=== PATIENT | male | born 1930 | race Caucasian/White ===

== ENCOUNTER 2016-12-06 13:06 | Emergency (ER) | payer MEDICARE, OTHER ==
--- NOTE | 2016-12-06 13:30 | Emergency Department Record ---
History of Present Illness - General Chief Complaint: Hypotension Stated Complaint: LOW BLOOD PRESSURE,JUST NOT FELLING RIGHT Time Seen by Provider: 12/06/16 13:20 Source: Patient Mode of Arrival: Ambulatory Limitations: No limitations - History of Present Illness Initial Comments: The patient states he has been feeling intermittently mildly weak for 3 days. He did have some trouble breathing 2 days ago which felt similar to when he was in atrial fibrillation recently and had to be cardioverted at [facility]. He denies any CP, sweating, nausea or weakness. The patient took his BP at home and it was a little low so he decided to come to the ER. The patient had been on blood thinners in the past after his cardioversion but had them stopped prematurely due to bleeding complications. Complaint: Lightheadedness Onset/Timin -: Days(s) Timing: Intermittent Description: Lightheadedness - [place] Coma Scale Eye Response: (4) Open spontaneously Motor Response: (6) Obeys commands Verbal Response: (5) Oriented [place] Total: 15 - Related Data Home Medications Medication Instructions Recorded Confirmed Last Taken Aspirin [Aspirin EC] 81 mg PO DAILY 12/06/16 12/06/16 1 Day Ago ~12/05/16 Allergies Allergy/AdvReac Type Severity Reaction Status Date / Time No Known Drug Allergies Allergy Verified 12/06/16 13:17 Travel Screening - Travel/Exposure Within Last 30 Days Have you traveled within the last 30 days?: No - Travel/Exposure Within Last Year Have you traveled outside the [place] in the last year?: No - Additonal Travel Details Have you been exposed to anyone with a communicable illness?: No - Travel Symptoms Symptom Screening: None Review of Systems Constitutional: Denies: Chills, Fever Eyes: Denies: Eye discharge ENT: Denies: Congestion Respiratory: Denies: Cough, Dyspnea Past Medical History - SOCIAL HISTORY Smoking Status: Former smoker Alcohol Use: None Drug Use: None - RESPIRATORY Hx Respiratory Disorders: No - CARDIOVASCULAR Hx Cardio Disorders: Yes Hx Hypertension: Yes Hx Irregular Heartbeat: Yes Comment:: Stopped and started By Dr Silva last January - NEURO Hx Neuro Disorders: No - GI Hx GI Disorders: No - Hx Genitourinary Disorders: No - MUSCULOSKELETAL Hx Musculoskeletal Disorders: No - PSYCH Hx Psych Problems: No - HEMATOLOGY/ONCOLOGY Hx Hematology/Oncology Disorders: No Family Medical History Any Significant Family History?: Yes Physical Exam - General General Appearance: Alert, Oriented x3, Cooperative, No acute distress - Head Head exam: Atraumatic, Normocephalic, Normal inspection - Eye Eye exam: Normal appearance, PERRL - Neck Neck exam: Normal inspection, Full ROM. negative: Tenderness - Respiratory Respiratory exam: Normal lung sounds bilaterally. negative: Respiratory distress - Cardiovascular Cardiovascular Exam: Irregular rhythm. negative: Regular rate, Normal rhythm - GI/Abdominal GI/Abdominal exam: Soft, Normal bowel sounds. negative: Tenderness - Extremities Extremities exam: Normal inspection, Full ROM, Normal capillary refill. negative: Tenderness - Neurological Neurological exam: Alert, Normal gait. negative: Abnormal gait, Motor sensory deficit Course Vital Signs 12/06/16 13:10 Temperature 97.7 F Pulse Rate 74 Respiratory 16 Rate Blood Pressure 102/73 Pulse Ox 99 - Reevaluation(s) Reevaluation #1: The patient is doing very well at this time. I did discuss the lab results with him and the fact his cardiac enzymes did not indicate any recent cardiac event. His BP is slightly low probably due to the Afib and with that along with the new onset of the Afib I did recommend hospital admission to possibly cardiovert the patient. The patient is reluctant to be admitted to the hospital and only wants to see Dr. Norman this week in the office. I explained to him that I could possibly get him an appointment for this [facility]. The risks of leaving are that the patient could go home and have a stroke, RI, fall due to hypotension, become disabled and even . The patient understands and accepts the risks of leaving AM. He is to stop his Lisonopril until he sees Dr. Norman but continue the rest of his medicines. Due to the fact the patient had his blood thinners stopped prematurely in the past I was not able to make any recommendation as to restarting them. The patient understands he could have a higher risk of stroke but also accepts those risks. 12/06/16 14:52 12/06/16 16:06 Reevaluation #2: I did attempt to consult with the [facility] Attending [employer] Dr. Ryan but he was not able to give any opinion as to the need for admission or blood thinners. 12/06/16 16:05 Medical Decision Making - Data Complexity MDM Data: Labs Ordered and/or Reviewed, EKG Ordered and/or Reviewed - Lab Data Result diagrams: 12/06/16 13:40 12/06/16 13:50 - EKG Data -: EKG Interpreted by Me EKG: Unchanged From Previous (Afib at 90's.) Disposition Disposition: Discharge Clinical Impression: Atrial fibrillation Qualifiers: Atrial fibrillation type: paroxysmal Qualified Code(s): I48.0 - Paroxysmal atrial fibrillation Disposition: Against Medical Advice Condition: (1) Good Instructions: A-fib (Atrial Fibrillation) (ED) Additional Instructions: Please stop your Lisinopril until you see Dr. Norman this week hopefully. Continue the rest of your medicines. Please see Dr. Norman this week as directed. Return to the ER for any CP, SOB, ERICH, or sweating. Referrals: [facility] [Provider Group] LEONIDAS NORMAN [DOCTOR OF OSTEOPATH] - Forms: Patient Portal Access Time of Disposition: 14:57 Quality - Quality Measures Quality Measures: N/A - Blood Pressure Screening View Details: Yes Does Patient Have Any of the Following: No Blood Pressure Classification: Normal BP Reading Systolic Measurement: 102 Diastolic Measurement: 73 Screening for High Blood Pressure: < Normal BP, F/U Not Required > [G8783]
[2016-12-06 13:59] LABS: BASO % 0.2 % (0-6); EOS % 0.7 % (0-6); GRAN % 70.8 % (47-80); HEMATOCRIT 41.3 % (42.0-52.0); HEMOGLOBIN 13.4 gm/dl (14.0-18.0); LYMPH % 20.5 % (16-45); MEAN CELL VOLUME 100.2 fl (81-97); MEAN CORPUSCULAR HEMOGLOBIN 32.5 pg (27-33); MEAN CORPUSCULAR HGB CONC 32.4 g/dl (32-36); MEAN PLATELET VOLUME 11.9 fl (7.4-10.4); MONO % 7.8 % (0-9); PLATELET COUNT 157 K/uL (130-400); RED BLOOD COUNT 4.12 M/uL (4.40-5.70); WHITE BLOOD COUNT W/O DIFF 9.4 K/uL (4.2-12.2)
[2016-12-06 14:03] LABS: BLOOD UREA NITROGEN 24 mg/dL (9-20); CREATINE PHOSPHOKINASE 27 U/L (55-170); EST GLOMERULAR FILTRATION RATE > 60 ml/min; GLUCOSE,RANDOM 98 mg/dL (70-110)
[2016-12-06 14:05] LABS: INR 1.03; PARTIAL THROMBOPLASTIN TIME 25.1 SECONDS (24.5-39.1); PROTHROMBIN TIME (PATIENT) 11.1 SECONDS (9.5-12.1)
[2016-12-06 14:15] LABS: CKMB 0.8 ug/L (0-6)
[2016-12-06 14:17] LABS: TROPONIN I < 0.012 ng/mL (0.00-0.034)
== END 2016-12-06 15:09 | disposition left against medical advice (07) ==
LOC: ER 13:06
DX: I48.0 Paroxysmal atrial fibrillation (principal); R42 Dizziness and giddiness; I10 Essential (primary) hypertension; Z87.891 Personal history of nicotine dependence
CPT/HCPCS: 80048; 82550; 82553; 84484; 85025; 85610; 85730; 93005; 93010; 99284

== ENCOUNTER 2019-02-06 12:18 | Inpatient (IN) | payer MEDICARE, OTHER ==
[2019-02-06 13:11] LABS: HEMATOCRIT 37.4 % (42.0-52.0); HEMOGLOBIN 11.7 gm/dl (14.0-18.0); MEAN CELL VOLUME 104.5 fl (81-97); MEAN CORPUSCULAR HGB CONC 31.3 g/dl (32-36); MEAN PLATELET VOLUME 11.6 fl (7.4-10.4); PLATELET COUNT 115 K/uL (130-400); RED BLOOD COUNT 3.58 M/uL (4.40-5.70); RED CELL DISTRIBUTION WIDTH 13.3 % (11.5-14.5); WHITE BLOOD COUNT W/O DIFF 8.7 K/uL (4.2-12.2)
[2019-02-06 13:16] LABS: MEAN CORPUSCULAR HEMOGLOBIN 32.6 pg (27-33)
--- NOTE | 2019-02-06 13:18 | Emergency Department Record ---
History of Present Illness - General Chief Complaint: Fall Injury Stated Complaint: FELL TWICE. Time Seen by Provider: 02/06/19 12:52 Source: Patient Mode of Arrival: Wheelchair Limitations: No limitations - History of Present Illness Initial Comments: pt has fallen twice in the last 2 days injuring his back and hitting his head. he has been increasingly weak. he also has had increasing confusion MD Complaint: Fall -: Unknown Fall From: Down stairs (#), Other When Fall Occurred: 4-6 hours [facility], # Days [facility] Place Fall Occurred: Home Symptoms Prior to Fall: Dizziness, Other Location: Head, Back Associated Symptoms: Confusion, Weakness - [place] Coma Scale Eye Response: (4) Open spontaneously Motor Response: (6) Obeys commands Verbal Response: (4) Confused conversation [place] Total: 14 - Related Data Home Medications Medication Instructions Recorded Confirmed Last Taken Acetaminop W/ Codeine 300/30Mg 1 tab PO Q6H 02/06/19 02/06/19 Unknown [Tylenol #3] Chlorthalidone 12.5 mg PO DAILY 02/06/19 02/06/19 Unknown Clobetasol Propionate/Emoll 1 apply TP DAILY 02/06/19 02/06/19 Unknown [Clobetasol Emollient 0.05% Crm] Clotrimazole/Betamethasone Dip 1 apply TP DAILY 02/06/19 02/06/19 Unknown [Lotrisone Cream] Dofetilide (Tikosyn) 250Mcg 500 mcg PO DAILY 02/06/19 02/06/19 Unknown [Tikosyn] Finasteride [Proscar] 5 mg PO DAILY 02/06/19 02/06/19 Unknown Allergies Allergy/AdvReac Type Severity Reaction Status Date / Time No Known Drug Allergies Allergy Verified 02/06/19 12:41 Travel Screening - Travel/Exposure Within Last 30 Days Have you traveled within the last 30 days?: No - Travel/Exposure Within Last Year Have you traveled outside the [place] in the last year?: No - Additonal Travel Details Have you been exposed to anyone with a communicable illness?: No Review of Systems Reviewed: No additional complaints except as noted below Constitutional: Reports: As per HPI, Weakness. Denies: Chills, Fever, Malaise, Night sweats, Weight change Eyes: Reports: As per HPI. Denies: Eye discharge, Eye pain, Photophobia, Vision change ENT: Reports: As per HPI. Denies: Congestion, Dental pain, Ear pain, Epistaxis, Hearing loss, Throat pain Respiratory: Reports: As per HPI. Denies: Cough, Dyspnea, Hemoptysis, Stridor, Wheezes Cardiovascular: Reports: As per HPI. Denies: Arrhythmia, Chest pain, Dyspnea on exertion, Edema, Murmurs, Orthopnea, Palpitations, Paroxysmal nocturnal dyspnea, Rheumatic Fever, Syncope Endocrine: Reports: As per HPI. Denies: Fatigue, Heat or cold intolerance, Polydipsia, Polyuria Gastrointestinal: Reports: As per HPI. Denies: Abdominal pain, Constipation, Diarrhea, Hematemesis, Hematochezia, Melena, Nausea, Vomiting Genitourinary: Reports: As per HPI. Denies: Dysuria, Frequency, Hematuria, In continence, Retention, Testicular pain, Testicular mass, Urgency Musculoskeletal: Reports: As per HPI. Denies: Arthralgia, Back pain, Gout, Joint swelling, Myalgia, Neck pain Skin: Reports: As per HPI. Denies: Bruising, Change in color, Change in h air/nails, Lesions, Pruritus, Rash Neurological: Reports: As per HPI. Denies: Abnormal gait, Confusion, Headache, Numbness, Paresthesias, Seizure, Tingling, Tremors, Vertigo, Weakness Psychiatric: Reports: As per HPI. Denies: Anxiety, Auditory hallucinations, Depression, Homicidal thoughts, Suicidal thoughts, Visual hallucinations Hematological/Lymphatic: Reports: As per HPI. Denies: Anemia, Blood Clots, Easy bleeding, Easy bruising, Swollen glands Past Medical History - SOCIAL HISTORY Smoking Status: Former smoker Alcohol Use: None Drug Use: None - RESPIRATORY Hx Respiratory Disorders: No - CARDIOVASCULAR Hx Cardio Disorders: Yes Hx Hypertension: Yes Hx Irregular Heartbeat: Yes Comment:: Stopped and started By Dr Silva last January - NEURO Hx Neuro Disorders: No - GI Hx GI Disorders: No - Hx Genitourinary Disorders: No - MUSCULOSKELETAL Hx Musculoskeletal Disorders: No - PSYCH Hx Psych Problems: No - HEMATOLOGY/ONCOLOGY Hx Hematology/Oncology Disorders: No Family Medical History Any Significant Family History?: No Physical Exam - General General Appearance: Alert, Oriented x3, Cooperative, No acute distress - Head Head exam: Normal inspection - Eye Eye exam: Normal appearance, PERRL, EOMI Pupils: Normal accommodation - ENT ENT exam: Normal exam, Mucous membranes moist, Normal external ear exam, Normal orophraynx Ear exam: Normal external inspection. negative: External canal tenderness Nasal Exam: Normal inspection. negative: Discharge, Sinus tenderness Mouth exam: Normal external inspection, Tongue normal Teeth exam: Normal inspection. negative: Dental caries Throat exam: Normal inspection. negative: Tonsillar erythema, Tonsillar exudate - Neck Neck exam: Normal inspection, Full ROM. negative: Tenderness - Respiratory Respiratory exam: Normal lung sounds bilaterally. negative: Respiratory distress - Cardiovascular Cardiovascular Exam: Normal heart sounds, Irregular rhythm, Tachycardia - GI/Abdominal GI/Abdominal exam: Soft, Normal bowel sounds. negative: Tenderness - Rectal Rectal exam: Deferred - exam: Deferred - Extremities Extremities exam: Normal inspection, Full ROM, Normal capillary refill. negative: Tenderness - Back Back exam: Reports: Normal inspection, Full ROM. Denies: Muscle spasm, Rash noted, Tenderness - Neurological Neurological exam: Alert, Normal gait, Oriented X3, Reflexes normal - Psychiatric Psychiatric exam: Normal affect, Normal mood - Skin Skin exam: Dry, Intact, Normal color, Warm Course Vital Signs 02/06/19 12:23 Temperature 98.7 F Pulse Rate 136 H Respiratory 20 Rate Blood Pressure 136/103 Pulse Ox 94 L - Reevaluation(s) Reevaluation #1: 02/06/19 17:41 bladder scan showed 650cc of residual urine. pt adamantly refused alexander Medical Decision Making - Lab Data Result diagrams: 02/06/19 12:53 02/06/19 12:53 Lab Results 02/06/19 Range/Units 12:53 WBC 8.7 (4.2-12.2) K/uL RBC 3.58 L (4.40-5.70) M/uL Hgb 11.7 L (14.0-18.0) gm/dl Hct 37.4 L (42.0-52.0) % MCV 104.5 H (81-97) fl MCH 32.6 (27-33) pg MCHC 31.3 L (32-36) g/dl RDW 13.3 (11.5-14.5) % Plt Count 115 L (130-400) K/uL MPV 11.6 H (7.4-10.4) fl Eosinophils % Not Reportable Basophils % Not Reportable Absolute Neutrophils Not Reportable Disposition Disposition: Admit Clinical Impression: Weakness, Urinary retention, Frequent falls, Chronic atrial fibrillation with rapid ventricular response Disposition: Still a Patient at [facility] Decision to Admit: Admit from ER Decision to Admit Date: 02/06/19 Decision to Admit Time: 17:42 Forms: Patient Portal Access Quality - Quality Measures Quality Measures: N/A - Blood Pressure Screening Does Patient Have Any of the Following: Active Dx of HTN Blood Pressure Classification: Hypertensive Reading Systolic Measurement: 136 Diastolic Measurement: 103 Screening for High Blood Pressure: Patient Exclusion, Hx of HTN [G9744]
[2019-02-06] MEDS ORDERED: LISINOPRIL 5 MG TABLET PO ONE (13:20)
[2019-02-06 13:21] LABS: BLOOD UREA NITROGEN 25 mg/dL (8-23); CREATININE 0.9 mg/dL (0.7-1.2); EST GLOMERULAR FILTRATION RATE > 60 mL/min
[2019-02-06 13:23] LABS: GLUCOSE,RANDOM 204 mg/dL (74-109)
[2019-02-06 13:26] LABS: ALB/GLOB RATIO 1.2 (1.1-1.8); ALBUMIN 3.3 g/dL (4.0-5.0); ALKALINE PHOSPHATASE 58 U/L (40-129); ALT/SGPT 10 U/L (<41); AST/SGOT 15 U/L (10.0-50.0)
[2019-02-06] MEDS ORDERED: CARVEDILOL 3.125 MG TABLET PO SCH ×2 (13:30→13:45)
[2019-02-06] MEDS ORDERED: FUROSEMIDE IV 40MG/4ML VIAL IVP ONE (13:45)
--- NOTE | 2019-02-06 13:46 | RADIOLOGY REPORT ---
EXAMINATION: Lumbar Spine Two or Three Views EXAM DATE: 02/06/2019 1:27 PM TECHNIQUE: AP and lateral views INDICATION: fall, pain COMPARISON: None ENCOUNTER: Initial FINDINGS: 3 views of the lumbar spine show mild anterior compression of L2 which is chronic appearing. There is no clear acute fracture but evaluation is limited due to severe degenerative change and rotatory lum bar dextroscoliosis. Severe diffuse degenerative disc disease and facet joint arthropathy is noted at all levels. IMPRESSION: 1. No definite acute fracture or subluxation. 2. Severe diffuse degenerative disc disease and lumbar scoliosis, limiting evaluation. 3. Mild chronic appearing anterior compression of L2. Dictated by: Alberto Hernandez MD on 02/06/2019 1:42 PM. .
--- NOTE | 2019-02-06 13:52 | CT SCAN REPORT ---
EXAMINATION: CT Head without IV Contrast EXAM DATE: 02/06/2019 1:37 PM TECHNIQUE: Standard protocol CT images of the head were obtained without intravenous contrast. [place] l and sagittal reconstructed images were created. INDICATION: fall COMPARISON: None HAND DOMINANCE: Unknown. ENCOUNTER: Not applicable FINDINGS: CT of the head without contrast shows no evidence of intracranial mass, hemorrhage, or extra-axial fl uid collection. There is no midline shift or mass effect. There is no CT evidence of acute/subacute i nfarct. The ventricles and sulci are age-appropriate. The paranasal sinuses and mastoid air cells are clear. There is no evidence of skull or visualized facial bone fracture. IMPRESSION: No acute intracranial abnormality. Dictated by: Alberto Hernandez MD on 02/06/2019 1:47 PM. .
[2019-02-06 14:20] LABS: URINE APPEARANCE CLEAR; URINE BILIRUBIN NEGATIVE (NEGATIVE); URINE BLOOD TRACE-I (NEGATIVE); URINE COLOR YELLOW; URINE GLUCOSE (UA) NEGATIVE (NEGATIVE); URINE KETONE NEGATIVE (NEGATIVE); URINE LEUKOCYTE ESTERASE NEGATIVE (NEGATIVE); URINE NITRITE NEGATIVE (NEGATIVE)
[2019-02-06 14:29] LABS: URINE EPITHELIAL CELLS NONE SEEN (FEW); URINE MUCUS LIGHT; URINE RBC NONE SEEN (NONE SEEN); URINE WBC NONE SEEN (0-2/hpf)
[2019-02-06] MEDS ORDERED: DILTIAZEM 25MG/5ML VIAL IV ONE (15:45)
[2019-02-07 07:06] LABS: HEMATOCRIT 34.7 % (42.0-52.0); HEMOGLOBIN 10.7 gm/dl (14.0-18.0); MEAN CELL VOLUME 103.9 fl (81-97); MEAN CORPUSCULAR HGB CONC 30.8 g/dl (32-36); MEAN PLATELET VOLUME 11.3 fl (7.4-10.4); PLATELET COUNT 103 K/uL (130-400); RED BLOOD COUNT 3.34 M/uL (4.40-5.70); RED CELL DISTRIBUTION WIDTH 13.3 % (11.5-14.5); WHITE BLOOD COUNT W/O DIFF 6.9 K/uL (4.2-12.2)
[2019-02-07 07:25] LABS: ALB/GLOB RATIO 1.2 (1.1-1.8); ALKALINE PHOSPHATASE 51 U/L (40-129); ALT/SGPT 8 U/L (<41); AST/SGOT 14 U/L (10.0-50.0); BLOOD UREA NITROGEN 29 mg/dL (8-23); CREATININE 0.9 mg/dL (0.7-1.2); EST GLOMERULAR FILTRATION RATE > 60 mL/min; GLUCOSE,RANDOM 127 mg/dL (74-109); TOTAL PROTEIN 5.5 g/dL (6.6-8.7)
[2019-02-07] MEDS ORDERED: LISINOPRIL 5 MG TABLET PO SCH (10:00)
[2019-02-07] MEDS ORDERED: CARVEDILOL 3.125 MG TABLET PO SCH ×2 (10:00→10:45)
[2019-02-07] MEDS ORDERED: CHLORTHALIDONE 25 MG TABLET PO SCH (10:00)
[2019-02-07] MEDS ORDERED: DOFETILIDE 500 MCG PO SCH (10:00)
[2019-02-07] MEDS ORDERED: POTASSIUM CHLORIDE 10 MEQ TAB PO SCH (10:00)
[2019-02-07] MEDS ORDERED: ASPIRIN 81 MG TABEC PO SCH (10:00)
[2019-02-07] MEDS ORDERED: Non-Formulary MISC (Finasteride [Proscar] 5 MG) PO SCH (10:00)
[2019-02-07] MEDS ORDERED: SIMVASTATIN 20 MG TABLET PO SCH (10:00)
[2019-02-07] MEDS ORDERED: POTASSIUM CHLORIDE 10 MEQ TAB PO ONE (10:22)
[2019-02-07] MEDS: TAMSULOSIN HCL 0.4 MG CAP.ER.24H PO SCH (11:50)
[2019-02-07] MEDS: FUROSEMIDE IV 20MG/2ML VIAL IVP SCH ×2 (11:51→17:06)
[2019-02-07] MEDS: ACETAMINOPHEN 500 MG TABLET PO PRN (13:08)
--- NOTE | 2019-02-07 13:32 | RADIOLOGY REPORT ---
EXAMINATION: Two View Chest Radiographs EXAM DATE: 02/07/2019 12:48 PM TECHNIQUE: Frontal and lateral views INDICATION: confusion, fever COMPARISON: None ENCOUNTER: Not applicable FINDINGS: Heart size is borderline enlarged. The pulmonary vessels are slightly distended. Mild parenchymal density seen in left base. Small left pleural effusion. IMPRESSION: 1. Borderline cardiac megaly and vascular distention. 2. Mild parenchymal density in the left base could relate to atelectasis or infiltrate with a small l eft pleural effusion. Dictated by: Monty Blake MD on 02/07/2019 1:19 PM. .
--- NOTE | 2019-02-07 15:23 | History & Physical ---
History of Present Illness - Date of Service Date of Service for History & Physical: 02/07/19 - History of Present Illness Admitting Diagnosis: weakness, chronic afib, urinary retention, frequent falls History of Present Illness: 88 y/o male presented to ED for 2 day hx of falls, increased weakness, fatigue, sleeping more, poor appetite, cough, increased confusion, BLE edema. at the bedside and provided the majority of information due to [place] and confusion. 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 does report he had had problems with urinary retention, most recently about 10 years ago had to have alexander catheter placement as managed by PCP for BPH. Recently saw Cafeteria Assistant last week with no new concerns. Has never been told he has heart failure. Currently is not using a catheter and according to has not had any complaints of urinary issues. Past medical hx includes former smoker, HTN, Afib with cardioversion January 2018, BPH, urinary retention. While in ED VSS, afebrile. BP 136/103. WBC 8.7, platelet 103, neutrophils 85. Na 139. BUN 25. Troponin x2 <0.010. BNP 3181. U/A unremarkable. EKG- a-fib with RVR. Cardizem 5mg IV given in ED with improvement in rate. Urinary frequency and little urine output-PVR>600. Patient adamantly refused alexander placement at that time. Admitted for weakness, frequent falling, urinary retention, a-fib with RVR. 02/07/19 1130- Resting in bed comfortably, in no obvious distress. at bedside and provided most of the history. PCP: Dr Palomo Cardiology: Dr SILVA Travel Screening - Travel/Exposure Within Last 30 Days Have you traveled within the last 30 days?: No - Travel/Exposure Within Last Year Have you traveled outside the [place] in the last year?: No - Additonal Travel Details Have you been exposed to anyone with a communicable illness?: No Review of Systems Constitutional: Reports: As per HPI, Weakness. Denies: Chills, Fever, Malaise, Night sweats, Weight change Eyes: Reports: As per HPI. Denies: Eye discharge, Eye pain, Photophobia, Vision change ENT: Reports: As per HPI. Denies: Congestion, Dental pain, Ear pain, Epistaxis, Hearing loss, Throat pain Respiratory: Reports: As per HPI. Denies: Cough, Dyspnea, Hemoptysis, Stridor, Wheezes Cardiovascular: Reports: As per HPI. Denies: Arrhythmia, Chest pain, Dyspnea on exertion, Edema, Murmurs, Orthopnea, Palpitations, Paroxysmal nocturnal dyspnea, Rheumatic Fever, Syncope Endocrine: Reports: As per HPI. Denies: Fatigue, Heat or cold intolerance, Polydipsia, Polyuria Gastrointestinal: Reports: As per HPI. Denies: Abdominal pain, Constipation, Diarrhea, Hematemesis, Hematochezia, Melena, Nausea, Vomiting Genitourinary: Reports: As per HPI. Denies: Dysuria, Frequency, Hematuria, Incontinence, Retention, Testicular pain, Testicular mass, Urgency Musculoskeletal: Reports: As per HPI. Denies: Arthralgia, Back pain, Gout, Joint swelling, Myalgia, Neck pain Skin: Reports: As per HPI. Denies: Bruising, Change in color, Change in hair/nails, Lesions, Pruritus, Rash Neurological: Reports: As per HPI. Denies: Abnormal gait, Confusion, Headache, Numbness, Paresthesias, Seizure, Tingling, Tremors, Vertigo, Weakness Psychiatric: Reports: As per HPI. Denies: Anxiety, Auditory hallucinations, Depression, Homicidal thoughts, Suicidal thoughts, Visual hallucinations Hematological/Lymphatic: Reports: As per HPI. Denies: Anemia, Blood Clots, Easy bleeding, Easy bruising, Swollen glands Past Medical History - SOCIAL HISTORY Smoking Status: Former smoker Alcohol Use: None Drug Use: None - RESPIRATORY Hx Respiratory Disorders: No - CARDIOVASCULAR Hx Cardio Disorders: Yes Hx Hypertension: Yes Hx Irregular Heartbeat: Yes Comment:: Stopped and started By Dr Silva last January - NEURO Hx Neuro Disorders: No - GI Hx GI Disorders: No - Hx Genitourinary Disorders: No Hx Prostate Problems: Yes - MUSCULOSKELETAL Hx Musculoskeletal Disorders: No - PSYCH Hx Psych Problems: No - HEMATOLOGY/ONCOLOGY Hx Hematology/Oncology Disorders: No Family Medical History Any Significant Family History?: No H&P Meds/Allergies - Allergies Allergies: Allergies Allergy/AdvReac Type Severity Reaction Status Date / Time No Known Drug Allergies Allergy Verified 02/06/19 12:41 - Home Medications Home Medications Medication Instructions Recorded Confirmed Last Taken Acetaminop W/ Codeine 300/30Mg 1 tab PO Q6H 02/06/19 02/06/19 Unknown [Tylenol #3] Chlorthalidone 12.5 mg PO DAILY 02/06/19 02/06/19 Unknown Clobetasol Propionate/Emoll 1 apply TP DAILY 02/06/19 02/06/19 Unknown [Clobetasol Emollient 0.05% Crm] Clotrimazole/Betamethasone Dip 1 apply TP DAILY 02/06/19 02/06/19 Unknown [Lotrisone Cream] Finasteride [Proscar] 5 mg PO DAILY 02/06/19 02/06/19 Unknown - Active Medications Active Medications: Current Medications Acetaminophen (Tylenol 500mg Tab) 1,000 mg PO Q6H PRN PRN Reason: PAIN - MILD(1-4)/FEVER Last Admin: 02/07/19 13:08 Dose: 1,000 mg Documented by: Azithromycin (Zithromax) [address] [facility] Carvedilol (Coreg) 6.[address] [facility] Last Admin: 02/07/19 11:50 Dose: 6.25 mg Documented by: Furosemide (Lasix Iv) [address] [facility] Last Admin: 02/07/19 11:51 Dose: 20 mg Documented by: Azithromycin 500 mg/ Sodium (Chloride) 250 mls @ 250 mls/hr IVPB NOW ONE Stop: 02/07/19 16:10 Ceftriaxone Sodium 1 gm/ (Sodium Chloride) 100 mls @ 200 mls/hr IVPB DAILY [facility] Stop: 02/12/19 15:16 Potassium Chloride (Klor-Con) [address] [facility] Tamsulosin HCl (Flomax) 0.[address] [facility] Last Admin: 02/07/19 11:50 Dose: 0.4 mg Documented by: Physical Exam - Vital Signs Vital Signs: Vital Signs - Last 24 Hrs Temp Pulse Pulse Pulse Resp BP BP 02/07/19 09:00 97 H 18 02/07/19 07:55 99.3 F 113 H 20 113/70 02/07/19 05:00 100.0 F H 105 H 20 113/63 02/06/19 23:00 99.2 F 02/06/19 21:00 18 02/06/19 20:00 100.1 F H 92 H 18 109/60 02/06/19 18:39 109 H 20 02/06/19 18:32 109 H 20 120/92 02/06/19 18:30 109 H 20 120/92 02/06/19 18:25 99.9 F H 82 122/78 02/06/19 16:54 105 H 20 120/92 02/06/19 16:22 100 H 18 110/69 Pulse Ox 02/07/19 09:00 02/07/19 07:55 97 02/07/19 05:00 98 02/06/19 23:00 02/06/19 21:00 02/06/19 20:00 97 02/06/19 18:39 02/06/19 18:32 95 02/06/19 18:30 95 02/06/19 18:25 97 02/06/19 16:54 98 02/06/19 16:22 96 - General General Appearance: Alert, Cooperative, No acute distress, Other (oriented to person and date) Limitations: No limitations - Head Head exam: Normal inspection - Eye Eye exam: Normal appearance, PERRL, EOMI Pupils: Normal accommodation - ENT ENT exam: Normal exam, Mucous membranes moist, Normal external ear exam, Normal orophraynx Ear exam: Normal external inspection. negative: External canal tenderness Nasal Exam: Normal inspection. negative: Discharge, Sinus tenderness Mouth exam: Normal external inspection, Tongue normal Teeth exam: Normal inspection. negative: Dental caries Throat exam: Normal inspection. negative: Tonsillar erythema, Tonsillar exudate - Neck Neck exam: Normal inspection, Full ROM. negative: Tenderness - Respiratory Respiratory exam: Rhonchi (LLL), Other (crackles bilat bases). negative: Respiratory distress - Cardiovascular Cardiovascular Exam: Normal heart sounds, Irregular rhythm, Systolic murmur, Tachycardia Peripheral Pulses: 2+: Radial (R), Radial (L), Dorsalis Pedis (R), Dorsalis Pedis (L) - GI/Abdominal GI/Abdominal exam: Soft, Normal bowel sounds, Hyperactive bowel sounds. negative: Tenderness - Rectal Rectal exam: Deferred - exam: Deferred - Extremities Extremities exam: Normal inspection, Full ROM, Normal capillary refill, Pedal edema (3+ pitting edema BLE knee to feet). negative: Tenderness - Back Back exam: Reports: Normal inspection, Full ROM. Denies: Muscle spasm, Rash noted, Tenderness - Neurological Neurological exam: Alert, CN II-XII intact, Normal gait, Reflexes normal - Psychiatric Psychiatric exam: Normal affect, Normal mood - Skin Skin exam: Dry, Intact, Normal color, Warm Results - Labs Result Diagrams: 02/07/19 06:08 02/07/19 06:08 Labs Last 24 Hours: Laboratory Results - last 24 hr 02/06/19 02/07/19 02/07/19 12:53 06:08 06:08 WBC 6.9 Corrected WBC RBC 3.34 L Hgb 10.7 L Hct 34.7 L MCV 103.9 H MCH 32.0 MCHC 30.8 L RDW 13.3 Plt Count 103 L MPV 11.3 H Gran % Neutrophils % 85.0 H Lymphocytes % Monocytes % Eosinophils % Not Reportable Basophils % Not Reportable Absolute Neutrophils Not Reportable Lymphocytes 12.0 L Monocytes 3.0 Sodium 140 Potassium 3.2 L Chloride 101 Carbon Dioxide 28.0 Anion Gap 11.0 BUN 29 H Creatinine 0.9 Estimated GFR > 60 Random Glucose 127 H Calcium 8.6 L Total Bilirubin 0.50 AST 14 ALT 8 Alkaline Phosphatase 51 Troponin T < 0.010 Total Protein 5.5 L Albumin 3.0 L Globulin 2.5 Albumin/Globulin Ratio 1.2 Procalcitonin 02/07/19 02/07/19 02/07/19 06:08 06:08 07:35 WBC Corrected WBC RBC Hgb Hct MCV MCH MCHC RDW Plt Count MPV Gran % Neutrophils % Lymphocytes % Monocytes % Eosinophils % Basophils % Absolute Neutrophils Lymphocytes Monocytes Sodium Potassium Chloride Carbon Dioxide Anion Gap BUN Creatinine Estimated GFR Random Glucose Calcium Total Bilirubin AST ALT Alkaline Phosphatase Troponin T < 0.010 Cancelled Total Protein Albumin Globulin Albumin/Globulin Ratio Procalcitonin 0.970 02/07/19 02/07/19 02/07/19 10:11 10:11 12:19 WBC Cancelled Corrected WBC Cancelled RBC Cancelled Hgb Cancelled Hct Cancelled MCV Cancelled MCH Cancelled MCHC Cancelled RDW Cancelled Plt Count Cancelled MPV Cancelled Gran % Cancelled Neutrophils % Lymphocytes % Cancelled Monocytes % Cancelled Eosinophils % Cancelled Basophils % Cancelled Absolute Neutrophils Cancelled Lymphocytes Monocytes Sodium Cancelled Cancelled Potassium Cancelled Cancelled Chloride Cancelled Cancelled Carbon Dioxide Cancelled Cancelled Anion Gap Cancelled Cancelled BUN Cancelled Cancelled Creatinine Cancelled Cancelled Estimated GFR Cancelled Cancelled Random Glucose Cancelled Cancelled Calcium Cancelled Cancelled Total Bilirubin Cancelled Cancelled AST Cancelled Cancelled ALT Cancelled Cancelled Alkaline Phosphatase Cancelled Cancelled Troponin T Total Protein Cancelled Cancelled Albumin Cancelled Cancelled Globulin Cancelled Cancelled Albumin/Globulin Ratio Cancelled Cancelled Procalcitonin - Imaging and Cardiology CT scan - head Status: Report reviewed VTE H&P Assessment - Risk for VTE Risk for VTE: Yes Risk Level: Moderate Risk Assessment Date: 02/07/19 Risk Assessment Time: 15:26 VTE Orders Placed or Will Be Placed: Yes Plan - Inpatient Certification Inpatient Certification: Admit to inpatient care: Based on my medical assessment, after consideration of patient's risk factors (age, co-morbidities and patient presenting symptoms and acuity), I expect that this patient will remain in the hospital greater than or equal to two midnights and that the services needed warrant inpatient care bec ause: Patient Risk Factors: [advanced age, urinary retention, falls, weakness] Estimated length of stay: [48-72 hours] The patient may reasonably be expected to be discharged or transferred to a hospital within 96 hours after admission to [facility]. Services needed: [nursing, PT/OT, telemetry, alexander catheter] Post hospital care (if known): [] I certify that my determination is in accordance with my understanding of Medicare requirements for reasonable and necessary inpatient services. 02/07/19 15:26 - Detailed Diagnosis and Plan (1) Chronic atrial fibrillation with rapid ventricular response Current Visit: Yes Status: Acute Base Code: I48.20 - CHRONIC ATRIAL F IBRILLATION, UNSPECIFIED Comment: 02/07/19 - EKG in ED a-fib with RVR, Cardizem 5mg x 1 given with improved rate - Telemetry a-fib, rate 100-109 - CHADVASC 4.8% 1/yr stroke risk, is not anticoagulant candidate due to hx GI bleed and falls - Most recent cardiology progress report reviewed from January 2019- medications reconcilled per most up to date list - Coreg 6.25 BID (2) CHF (congestive heart failure) Current Visit: Yes Status: Acute Base Code: I50.9 - HEART FAILURE, U NSPECIFIED Comment: 02/07/19 - ProBNP in ED 3181, Troponin <0.010 - No previous hx CHF, no echo available for review - Echo today - Fluid restriction, cardiac diet - Lasix 20mg IVP BID - Daily weights - Increase K-dur to 20mEq QD - Labs in am (3) Acute alteration in mental status Current Visit: Yes Status: Acute Base Code: R41.82 - ALTERED MENTAL STATUS, UNSPECIFIED Comment: 02/07/19 - Head CT negative in ED - Acute change in normal baseline cognition (drives, works, independent) - U/A unremarkable in ED, sent for culture - BC x 2 - Tmax 100.1 - CXR today-->LLL pneumonia - Procalcitonin 0.9 (4) HTN (hypertension) Current Visit: Yes Status: Acute Base Code: I10 - ESSENTIAL (PRIMARY) HYPERTENSION Comment: 02/07/19 - Lisinopril 5mg daily, Coreg 6.25mg BID (5) Frequent falls Current Visit: Yes Status: Acute Base Code: R29.6 - REPEATED FALLS Comment: 02/07/19 - PT/OT eval - Likely due to acute illness (6) Urinary retention Current Visit: Yes Status: Acute Base Code: R33.9 - RETENTION OF URINE, UNSPECIFIED Comment: 02/07/19 - Past hx of urinary retention requiring alexander placement, hx BPH, no urologist - PVR in ED>600, refused alexander in ED - Will repeat PVR and insert alexander if >200. Rationale explained to patient and who understand the need for alexander catheter and is in agreement for it - Follow up with urology as outpatient - Flomax 0.4mg QD (Proscar was listed on home medication list but had not taken in some time) (7) Weakness Current Visit: Yes Status: Acute Base Code: R53.1 - WEAKNESS Comment: 02/07/19 - PT/OT (8) LLL pneumonia Current Visit: Yes Status: Acute Base Code: J18.1 - LOBAR PNEUMONIA, UNSPECIFIED ORGANISM Comment: 02/07/19 - Rocephin 1gm QD, Azithromycin 500mg QD (9) Full code status Current Visit: Yes Status: Acute Base Code: Z78.9 - OTHER SPECIFIED HEALTH STATUS Comment: 02/07/19 (10) DVT prophylaxis Current Visit: Yes Status: Acute Base Code: Z29.9 - ENCOUNTER FOR PROPHYLACTIC MEASURES, UNSPECIFIED Comment: 02/07/19 - Not candidate for anticoagulation due to GI bleed and falling - SCD in bed - Nursing to encourage frequent ambulation
--- NOTE | 2019-02-07 15:24 | Rehab Evaluation ---
Patient Information - Patient Information Diagnosis: Weakness, Chronic A-fib, Frequent Falls, Urinary Retention Ordered Treatment: PT Evaluate and Treat Status: Initial Evaluation Surgery: No History: Detail (Patient was admitted to the inpatient floor from the ED on 02/06/19 after sustaining a fall at home.) Past Medical/Surgical Hx: PAST MEDICAL/SURGICAL HISTORY Past Surgical History knee replacement, hip replacement PMH - Respiratory Hx Respiratory Disorders No PMH - Cardiovascular Hx Cardiovascular Disorders Yes Hx Hypertension Yes Hx Irregular Heartbeat Yes Comment: Stopped and started By Dr Silva last January PMH - Neuro Hx Neurological Disorders No PMH - GI Hx Gastrointestinal Disorders No PMH - Hx Genitourinary Disorders No Hx Prostate Problems Yes PMH - Musculoskeletal Hx Musculoskeletal Disorders No PMH - Psych Hx Psychiatric Problems No PMH - Hematology/Oncology Hx Hematology/Oncology No Disorders Premorbid Status: Detail (Patient reports that he has had a few falls at home in the past couple of weeks both over ground and on the stairs. He was able to ambulate community distances with his straight cane.) Social History: Detail (Patient lives in a 2-story home with his and granddaughter. There are 3 steps to enter the home with 2 railings. His bedroom is on the first floor, and there is a bathroom on the first and second floor. There is no shower on the first floor. In the upstairs bathroom there is a tu b/shower combination with grab bars, and no hand held shower head. There is a curtain on the shower. The toilet is of standard height and he reports that there are things to grab onto to help stand up. To get to the upstairs there are a flight worth of steps broken up with a landing between them. He has a single point cane, a front-wheeled walker, and a 4-wheeled walker available to use. He reports that he stands to bathe and is able to dress independently. The cooking is done by his granddaughter and the cleaning is done by his and granddaughter.) Precautions: [place], Fall - Time With Patient Total Time Spent With Patient (Min): 30 Treatment Procedures: Detail (Initial evaluation; low complexity The patient was left in bed with his call light and bedside table within reach. His was in the room with him and the nursing staff was notified of his position.) Subjective Information - Subjective Information Per Patient (Patient reported that he had no pain.) Objective Data - Pain Pain Present: No - Mental Status Patient Orientation: Oriented x3 (Patient was able to correctly identify his age, birthdate, current location, the current month, and current president.) - Visual Perception Appears within normal limits for therapeutic activities - ROM Within normal limits (Bilateral LE AROM was within normal limits for functional activities.) - Strength/Tone Other (R hip flexion 3/5, L hip flexion 3+/5, bilateral hip abduction 3+/5, bilateral hip adduction and knee flexion and extension 4/5, bilateral ankle dorsiflexion 5/5) - Coordination Appears within normal limits for therapeutic activities - Bed Mobility Needs Assist (Patient was able to independently move to the edge of the bed from supine and back into the bed from sitting at the edge. He needed mod assist of 2 to move him up in bed.) - Transfers Independent (Patient was independent in moving from supine to sit, sit to stand, stand to sit, and sit to supine. When standing from the toilet, the patient needed multiple attempts to rise but was able to do so independently.) - Balance Balance Sitting: Fair (Patient had a tendency to lean backwards when raising his arms overhead. He had good sitting balance when donning and doffing a sock.) Balance Standing: Fair (In static standing, patient had minimal postural sway. When given perturbations, patient demonstrated postural sway of up to 4 inches anterior and posterior.) - Gait Detail (Patient was able to ambulate 80 feet independently with a front-wheeled walker. He had a reciprocal step through gait pattern. Bilateral ankle dorsiflexion was limited during gait by increased LE edema but patient was still able to clear both feet.) - ADL's/IADL's Detail Therapy Assessment - Therapy Assessment Detail (Patient presents with decreased LE strength, decreased balance, and gait abnormalities that make him a good candidate for inpatient physical therapy. He is being reccommended for outpatient physical therapy for whole body strengthening and balance training to help to reduce his risk for falls and to maintain his endurance.) Problem List - Problem List Physical Therapy Problem List: Detail (1. Decreased LE strength 2. Decreased balance 3. Gait abnormalities 4. Assistance with bed mobility 5. Decreased tolerance for stairs) Goals - Goals Physical Therapy Goals: 1. Patient will be able to complete all bed mobility tasks independently to be able to move in bed by himself. 2. Patient will be able to ambulate 80 feet with a straight cane to return home at his prior functional status. 3. 3. Patient will be able to ascend and descend 10 stairs to get to the second floor of his home to use the bathroom. 4. Patient's balance will be formally assessed using an objective balance outcome measure. Prognosis - Prognosis Good Plan - Plan Physical Therapy Plan: Patient will be seen 1-2x a day, M-F, for therapeutic exercises and activities, gait training, stair training, transfer training, and balance training. He is being recommended for outpatient physical therapy following discharge.
--- NOTE | 2019-02-07 15:26 | Rehab Evaluation ---
Patient Information - Patient Information Diagnosis: weakness, chronic A-fib, urinary retention, frequent falls Ordered Treatment: OT Evaluate and Treat Status: Initial Evaluation Past Medical/Surgical Hx: PAST MEDICAL/SURGICAL HISTORY Past Surgical History knee replacement, hip replacement PMH - Respiratory Hx Respiratory Disorders No PMH - Cardiovascular Hx Cardiovascular Disorders Yes Hx Hypertension Yes Hx Irregular Heartbeat Yes Comment: Stopped and started By Dr Silva last January PMH - Neuro Hx Neurological Disorders No PMH - GI Hx Gastrointestinal Disorders No PMH - Hx Genitourinary Disorders No Hx Prostate Problems Yes PMH - Musculoskeletal Hx Musculoskeletal Disorders No PMH - Psych Hx Psychiatric Problems No PMH - Hematology/Oncology Hx Hematology/Oncology No Disorders Premorbid Status: Detail (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 He ambulated using a cane.) Social History: Detail (Patient lives with spouse and granddaughter in a 2-story house. Three steps to enter house with bilateral handrails. Bedroom and half bath is located on the first floor however bathroom with a shower is on the second floor up flight of stairs with bilateral handrails. Bathroom contains tub/shower combo with fixed shower head and grab bars. Patient stands to shower. He has a normal height toilet and was uncertain if there are grab bars around toilet. Granddaughter cooks the meals. Patient has 2WW and 4WW available. He has a hx of frequent falls.) Precautions: [place], Fall - Time With Patient Total Time Spent With Patient (Min): 30 Treatment Procedures: Detail (OT delia morales. Evaluation completed with PT present) Subjective Information - Subjective Information Per Patient Objective Data - Pain Pain Present: No - Mental Status Patient Orientation: Oriented x3 - Visual Perception Appears within normal limits for therapeutic activities (Patient wears glasses) - ROM Not within normal limits (bilateral shld flex and abd to ~ 120 deg. WNL bilateral elbow flex/ext. 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 Independent with hospital breif don/doff. Independent with sock don/doff. Patient is independent with toilet t/f and toilet H.) Therapy Assessment - Therapy Assessment Detail (Patient shows some weakness in bilateral shlds, however, this appears to close to patients baseline CRISIS MANAGER. He is independent with sock and breif don/doff and has functional ROM to complete ADLs. Patient does show some balance deficits that could be addressed by physical therapy. Do not anticipate patient needing OT at this time but will continue to monitor patient in case functional status changes during his stay here at [facility].) Problem List - Problem List Occupational Therapy Problem List: Detail Prognosis - Prognosis Good Plan - Plan Occupational Therapy Plan: Monitor patient during stay here at [facility] for any functional changes and address them as needed but at this time do not feel patient requires further OT services.
[2019-02-07] MEDS ORDERED: AZITHROMYCIN 500 MG in 0.9 % SODIUM CHLORIDE 250ML 250 ML IVPB ONE (16:00)
[2019-02-07] MEDS: CEFTRIAXONE 1GM/50ML BAG 1 GM/50 ML BAG IVPB SCH (16:10)
[2019-02-07] MEDS: METOPROLOL TART 50 MG TABLET PO SCH (22:34)
[2019-02-08 06:54] LABS: ABSOLUTE NEUTROPHIL COUNT 4.56; HEMATOCRIT 34.6 % (42.0-52.0); HEMOGLOBIN 10.9 gm/dl (14.0-18.0); MEAN CELL VOLUME 102.4 fl (81-97); MEAN CORPUSCULAR HEMOGLOBIN 32.2 pg (27-33); MEAN CORPUSCULAR HGB CONC 31.5 g/dl (32-36); MEAN PLATELET VOLUME 11.2 fl (7.4-10.4); PLATELET COUNT 98 K/uL (130-400); RED BLOOD COUNT 3.38 M/uL (4.40-5.70); RED CELL DISTRIBUTION WIDTH 13.1 % (11.5-14.5); WHITE BLOOD COUNT W/O DIFF 5.6 K/uL (4.2-12.2)
[2019-02-08 07:18] LABS: ALB/GLOB RATIO 0.9 (1.1-1.8); ALBUMIN 2.6 g/dL (4.0-5.0); ALKALINE PHOSPHATASE 53 U/L (40-129); ALT/SGPT 11 U/L (<41); AST/SGOT 17 U/L (10.0-50.0); BLOOD UREA NITROGEN 29 mg/dL (8-23); CREATININE 0.8 mg/dL (0.7-1.2); EST GLOMERULAR FILTRATION RATE > 60 mL/min; GLUCOSE,RANDOM 103 mg/dL (74-109); TOTAL PROTEIN 5.4 g/dL (6.6-8.7)
[2019-02-08] MEDS ORDERED: BENZONATATE 100 MG CAPSULE PO PRN (09:40)
[2019-02-08] MEDS: ACETAMINOPHEN 500 MG TABLET PO PRN (09:48)
[2019-02-08] MEDS: FUROSEMIDE IV 20MG/2ML VIAL IVP SCH (09:48)
[2019-02-08] MEDS: TAMSULOSIN HCL 0.4 MG CAP.ER.24H PO SCH (10:02)
[2019-02-08] MEDS: METOPROLOL TART 50 MG TABLET PO SCH ×2 (10:03→22:20)
[2019-02-08] MEDS: POTASSIUM CHLORIDE 20 MEQ TABLET PO SCH (10:03)
[2019-02-08 10:49] LABS: ALB/GLOB RATIO 1.1 (1.1-1.8); ALKALINE PHOSPHATASE 54 U/L (40-129); ALT/SGPT 12 U/L (<41); AST/SGOT 18 U/L (10.0-50.0); BLOOD UREA NITROGEN 27 mg/dL (8-23); CREATININE 0.9 mg/dL (0.7-1.2); EST GLOMERULAR FILTRATION RATE > 60 mL/min; GLUCOSE,RANDOM 133 mg/dL (74-109); TOTAL PROTEIN 5.7 g/dL (6.6-8.7)
[2019-02-08] MEDS: DOXYCYCLINE HYCLATE 100 MG CAPSULE PO SCH ×2 (10:58→22:19)
--- NOTE | 2019-02-08 11:41 | Physical Therapy Tx Note ---
Physical Therapy Tx Note - Treatment Note Tolerated: Fair Total Time Spent With Patient: 25 Physical Therapy Tx Note: Detail (Pt in bed upon arrival, awake/alert, cooperative for therapy. Droplet precautions in place. Performed 10 reps each B of ankle dorsiflexion, heel slides, SLR assisted, hip abduction/adduction in hooklying. Independently came to sit at edge of bed, independent sit/stand from bed to front wheeled walker to ambulate to bathroom, w/SBA. CGA for stand/sit transfer to commode, and for sit/stand to walker. Ambulated back to bed with SBA; independently got into bed and positioned self. Nrsg in for bladder scan, EKG, and labwork. Pt left w/nrsg present.) Physical Therapy Problem List: Detail (1. Decreased LE strength 2. Decreased balance 3. Gait abnormalities 4. Assistance with bed mobility 5. Decreased tolerance for stairs) Physical Therapy Goals: 1. Patient will be able to complete all bed mobility tasks independently to be able to move in bed by himself. 2. Patient will be able to ambulate 80 feet with a straight cane to return home at his prior functional status. 3. 3. Patient will be able to ascend and descend 10 stairs to get to the second floor of his home to use the bathroom. 4. Patient's balance will be formally assessed using an objective balance outcome measure. Physical Therapy Plan: Patient will be seen 1-2x a day, M-F, for therapeutic e xercises and activities, gait training, stair training, transfer training, and balance training. He is being recommended for outpatient physical therapy following discharge.
--- NOTE | 2019-02-08 12:32 | Physician Progress Note ---
Subjective - Date Date of Physician Progress Note: 02/08/19 Objective - Vital Signs Vital Signs: Vital Signs - Last 24 Hrs Temp Pulse Pulse Resp BP BP Pulse Ox 02/08/19 08:00 98.4 F 103 H 16 120/78 94 L 02/08/19 04:00 99 F 96 H 16 112/72 97 02/08/19 00:00 81 18 118/67 96 02/07/19 21:00 101 H 16 02/07/19 20:00 98.2 F 101 H 16 108/60 99 02/07/19 16:24 99.3 F 113/70 02/07/19 16:06 98.7 F 98 H 20 101/54 100 - General General Appearance: Alert, Oriented x3, Cooperative, No acute distress Limitations: No limitations - Head Head exam: Normal inspection - Eye Eye exam: Normal appearance, PERRL, EOMI Pupils: Normal accommodation - ENT ENT exam: Normal exam, Mucous membranes moist, Normal external ear exam, Normal orophraynx Ear exam: Normal external inspection. negative: External canal tenderness Nasal Exam: Normal inspection. negative: Discharge, Sinus tenderness Mouth exam: Normal external inspection, Tongue normal Teeth exam: Normal inspection. negative: Dental caries Throat exam: Normal inspection. negative: Tonsillar erythema, Tonsillar exudate - Neck Neck exam: Normal inspection, Full ROM. negative: Tenderness - Respiratory Respiratory exam: Rhonchi (LLL), Other (crackles bilat bases). negative: Respiratory distress - Cardiovascular Cardiovascular Exam: Normal heart sounds, Irregular rhythm, Systolic murmur, Tachycardia Peripheral Pulses: 2+: Radial (R), Radial (L), Dorsalis Pedis (R), Dorsalis Pedis (L) - GI/Abdominal GI/Abdominal exam: Soft, Normal bowel sounds, Hyperactive bowel sounds. negative: Tenderness - Rectal Rectal exam: Deferred - exam: Deferred - Extremities Extremities exam: Normal inspection, Full ROM, Normal capillary refill, Pedal edema (2+ pitting edema BLE knee to feet). negative: Tenderness - Back Back exam: Reports: Normal inspection, Full ROM. Denies: Muscle spasm, Rash noted, Tenderness - Neurological Neurological exam: Alert, CN II-XII intact, Normal gait, Reflexes normal - Psychiatric Psychiatric exam: Normal affect, Normal mood - Skin Skin exam: Dry, Intact, Normal color, Warm Assessment and Plan - Assessment and Plan (1) Chronic atrial fibrillation with rapid ventricular response Current Visit: Yes Status: Acute Base Code: I48.20 - CHRONIC ATRIAL FIBRILL ATION, UNSPECIFIED Comment: 02/08/19 - EKG in ED a-fib with RVR, Cardizem 5mg x 1 given with improved rate - Telemetry a-fib, rate 100-109, Echo 02/07/19- EF 30-35% moderate biatrial enlargement, mild mitral regurgitation, mild tricuspid regurgitation, mornal pulmonary pressures. Per previous report from [facility] cardiology last EF 55-60% July 2018. This apprears to be a new cardiomyopathy. Case discussed with Dr Azar MCLAUGHLIN last night, patient does have hx of cardiomyopathy with recurrent a-fib, was cardioverted last year and had EF 55-60% after that - CHADVASC 4.8% 1/yr stroke risk, is not anticoagulant candidate due to hx GI bleed and falls - Most recent cardiology progress report reviewed from January 2019- medications reconcilled per most up to date list - WIll DC coreg and try to control rate with Metoprolol 50 BID and increase in 24 hours to 100mg BID if rate not controlled. Dr Azar MCLAUGHLIN recommends transfer for cardioversion of medication regimen failure - EKG and stat troponin this am for acute onset mid sternal chest pain and deep chest pressure as if being sat on- EKG unchanged from previous, remains in a-fib with tachycardic rate, troponin x 2 <0.010 (2) CHF (congestive heart failure) Current Visit: Yes Status: Acute Base Code: I50.9 - HEART FAILURE, UNSPECIFIED Comment: 02/08/19 - ProBNP in ED 3181, Troponin <0.010 - Fluid restriction, cardiac diet - Lasix 20mg IVP BID, noted improvement in BLE edema today - Daily weights, there has been a weight loss over night, BP stable - Increase K-dur to 20mEq QD - Labs in am, NA today 135 (3) Acute alteration in mental status Current Visit: Yes Status: Acute Base Code: R41.82 - ALTERED MENTAL STATUS, UNSPECIFIED Comment: 02/08/19 - Head CT negative in ED - Acute change in normal baseline cognition (drives, works, independent) - U/A unremarkable in ED, sent for culture - BC x 2, preliminary no growth - Tmax 100.1 - CXR today-->LLL pneumonia - Procalcitonin 0.9 - Azithromycin changed to Doxycycine for cardiac protection, Rocephin 1gm QD - Cognition returned to baseline today, A&O x3 (4) HTN (hypertension) Current Visit: Yes Status: Acute Base Code: I10 - ESSENTIAL (PRIMARY) HYPERTENSION Comment: 02/08/19 - Lisinopril 5mg daily, Metoprolol 50mg BID (5) Frequent falls Current Visit: Yes Status: Acute Base Code: R29.6 - REPEATED FALLS Comment: 02/07/19 - PT/OT eval - Likely due to acute illness (6) Urinary retention Current Visit: Yes Status: Acute Base Code: R33.9 - RETENTION OF URINE, UNSPECIFIED Comment: 02/08/19 - Past hx of urinary retention requiring alexander placement, hx BPH, no urologist - PVR in ED>600, refused alexander in ED - PVRs have been 50-60 consistently. Rationale explained to patient and who understand the need for alexander catheter and is in agreement for it - Follow up with urology as outpatient - Flomax 0.4mg QD (Proscar was listed on home medication list but had not taken in some time) (7) Weakness Current Visit: Yes Status: Acute Base Code: R53.1 - WEAKNESS Comment: 02/08/19 - PT/OT (8) LLL pneumonia Current Visit: Yes Status: Acute Base Code: J18.1 - LOBAR PNEUMONIA, UNSPECIFIED ORGANISM Comment: 02/08/19 - Doxycycline 100mg BID (changed from Azithromycin for cardiac protection), Rocephin 1gm Q (9) Full code status Current Visit: Yes Status: Acute Base Code: Z78.9 - OTHER SPECIFIED HEALTH STATUS Comment: 02/08/19 (10) DVT prophylaxis Current Visit: Yes Status: Acute Base Code: Z29.9 - ENCOUNTER FOR PROPHYLACTIC MEASURES, UNSPECIFIED Comment: 02/08/19 - Not candidate for anticoagulation due to GI bleed and falling - SCD in bed - Nursing to encourage frequent ambulation Results - Labs Result Diagrams: 02/08/19 06:40 02/08/19 10:27 Labs Last 24 Hours: Laboratory Results - last 24 hr 02/07/19 02/08/19 02/08/19 12:19 06:40 06:40 WBC 5.6 RBC 3.38 L Hgb 10.9 L Hct 34.6 L MCV 102.4 H MCH 32.2 MCHC 31.5 L RDW 13.1 Plt Count 98 L MPV 11.2 H Neutrophils % 80.0 Band Neutrophils % 0.0 Eosinophils % Not Reportable Basophils % Not Reportable Absolute Neutrophils 4.56 Lymphocytes 14.0 L Monocytes 6.0 Basophils 0.0 Eosinophil Count 0.0 Sodium Cancelled 137 Potassium Cancelled 3.4 Chloride Cancelled 99 Carbon Dioxide Cancelled 28.0 Anion Gap Cancelled 10.0 BUN Cancelled 29 H Creatinine Cancelled 0.8 Estimated GFR Cancelled > 60 Random Glucose Cancelled 103 Calcium Cancelled 8.5 L Total Bilirubin Cancelled 0.40 AST Cancelled 17 ALT Cancelled 11 Alkaline Phosphatase Cancelled 53 Troponin T Total Protein Cancelled 5.4 L Albumin Cancelled 2.6 L Globulin Cancelled 2.8 Albumin/Globulin Ratio Cancelled 0.9 L 02/08/19 02/08/19 02/08/19 06:40 10:27 10:27 WBC RBC Hgb Hct MCV MCH MCHC RDW Plt Count MPV Neutrophils % Band Neutrophils % Eosinophils % Basophils % Absolute Neutrophils Lymphocytes Monocytes Basophils Eosinophil Count Sodium 135 L Potassium 3.5 Chloride 95 L Carbon Dioxide 28.0 Anion Gap 12.0 BUN 27 H Creatinine 0.9 Estimated GFR > 60 Random Glucose 133 H Calcium 8.6 L Total Bilirubin 0.40 AST 18 ALT 12 Alkaline Phosphatase 54 Troponin T < 0.010 < 0.010 Total Protein 5.7 L Albumin 3.0 L Globulin 2.7 Albumin/Globulin Ratio 1.1 DVT/PE Assessment - Risk for VTE Risk for VTE: No Risk Level: Moderate Risk Assessment Date: 02/07/19 Risk Assessment Time: 15:26 VTE Orders Placed or Will Be Placed: Yes - Active Medicaitons Current Medications: Current Medications Acetaminophen (Tylenol 500mg Tab) 1,000 mg PO Q6H PRN PRN Reason: PAIN - MILD(1-4)/FEVER Last Admin: 02/08/19 09:48 Dose: 1,000 mg Documented by: Benzonatate (Tessalon) 100 mg PO TID PRN PRN Reason: COUGH Last Admin: 02/08/19 09:48 Dose: 100 mg Documented by: Doxycycline Hyclate (Vibramycin) 100 mg PO BID [facility] Last Admin: 02/08/19 10:58 Dose: 100 mg Documented by: Furosemide (Lasix Iv) 20 mg IVP [facility]ID[facility]UR [facility] Last Admin: 02/08/19 09:48 Dose: 20 mg Documented by: CEFTRIAXONE 1GM/50ML BAG (Ceftriaxone 1 Gm-D5w Bag) 1 gm in 50 mls @ 100 mls/hr IVPB Q24H [facility] Last Infusion: 02/07/19 17:31 Dose: Infused Documented by: Metoprolol Tartrate (Lopressor) 50 mg PO BID [facility] Last Admin: 02/08/19 10:03 Dose: 50 mg Documented by: Potassium Chloride (Klor-Con) 20 meq PO DAILY [facility] Last Admin: 02/08/19 10:03 Dose: 20 meq Documented by: Tamsulosin HCl (Flomax) 0.4 mg PO DAILY [facility] Last Admin: 02/08/19 10:02 Dose: 0.4 mg Documented by: AMI Plan - Labs Result Diagrams: 02/08/19 06:40 02/08/19 10:27
[2019-02-08] MEDS: CYANOCOBALAMIN (VITAMIN B-12) 100 MCG TABLET PO SCH (14:55)
[2019-02-08] MEDS ORDERED: AZITHROMYCIN 500 MG TABLET PO SCH (16:00)
[2019-02-08] MEDS: CEFTRIAXONE 1GM/50ML BAG 1 GM/50 ML BAG IVPB SCH (16:05)
[2019-02-09] MEDS: ACETAMINOPHEN 500 MG TABLET PO PRN ×2 (07:49→21:25)
[2019-02-09] MEDS: TAMSULOSIN HCL 0.4 MG CAP.ER.24H PO SCH (10:14)
[2019-02-09] MEDS: POTASSIUM CHLORIDE 20 MEQ TABLET PO SCH (10:14)
[2019-02-09] MEDS: METOPROLOL TART 50 MG TABLET PO SCH ×2 (10:15→21:23)
[2019-02-09] MEDS: CYANOCOBALAMIN (VITAMIN B-12) 100 MCG TABLET PO SCH (10:17)
[2019-02-09] MEDS: FUROSEMIDE IV 20MG/2ML VIAL IVP SCH (10:29)
[2019-02-09] MEDS: DOXYCYCLINE HYCLATE 100 MG CAPSULE PO SCH ×2 (10:30→21:23)
--- NOTE | 2019-02-09 11:57 | Physical Therapy Tx Note ---
Physical Therapy Tx Note - Treatment Note Tolerated: Good Total Time Spent With Patient: 20 Physical Therapy Tx Note: Detail (Patient ambulated 140 feet in the hallway with the front-wheeled walker. At the care home point he asked to turn around due to feeling tired. After the walk, his pulse was checked and it was 71 bpm. Patient completed LAQs x10, hip flexion x10, and ankle pumps x10 bilaterally. He then requested to use the restroom. He was able to sit independently on the toilet but required min assist of 1 to stand from the toilet. He was independent in sit to stand from the chair and bed. After using the restroom he requested to return to bed. The patient required mod assist of 2 to move him up in bed. He was positioned in bed with his legs elevated slightly to relieve pressure on his heels. The patient was left in bed with his call light and bedside table within reach, and his was in the room with him.) Physical Therapy Problem List: Detail (1. Decreased LE strength 2. Decreased balance 3. Gait abnormalities 4. Assistance with bed mobility 5. Decreased tolerance for stairs) Physical Therapy Goals: 1. Patient will be able to complete all bed mobility tasks independently to be able to move in bed by himself. 2. Patient will be able to ambulate 80 feet with a straight cane to return home at his prior functional status. 3. 3. Patient will be able to ascend and descend 10 stairs to get to the second floor of his home to use the bathroom. 4. Patient's balance will be formally assessed using an objective balance outcome measure. Physical Therapy Plan: Patient will be seen 1-2x a day, M-F, for therapeutic exercises and activities, gait training, stair training, transfer training, and balance training. He is being recommended for outpatient physical therapy fol lowing discharge.
--- NOTE | 2019-02-09 12:18 | Physician Progress Note ---
Subjective - Date Date of Physician Progress Note: 02/09/19 Objective - Vital Signs Vital Signs: Vital Signs - Last 24 Hrs Temp Pulse Pulse Pulse Resp BP BP 02/09/19 11:59 94.9 F L 80 14 02/09/19 11:32 98.1 F 117/64 02/09/19 08:16 98.1 F 82 80 14 02/09/19 06:05 97.9 F 96 H 18 126/65 02/09/19 01:20 97.5 F L 97 H 16 108/67 02/08/19 20:00 99.3 F 110 H 18 137/95 02/08/19 16:00 97.9 F 91 H 15 122/74 02/08/19 13:28 97.9 F 96 H 16 101/58 BP Pulse Ox 02/09/19 11:59 110/68 02/09/19 11:32 02/09/19 08:16 117/64 02/09/19 06:05 95 02/09/19 01:20 97 02/08/19 20:00 97 02/08/19 16:00 97 02/08/19 13:28 94 L - General General Appearance: Alert, Oriented x3, Cooperative, No acute distress Limitations: No limitations - Head Head exam: Normal inspection - Eye Eye exam: Normal appearance, PERRL, EOMI Pupils: Normal accommodation - ENT ENT exam: Normal exam, Mucous membranes moist, Normal external ear exam, Normal orophraynx Ear exam: Normal external inspection. negative: External canal tenderness Nasal Exam: Normal inspection. negative: Discharge, Sinus tenderness Mouth exam: Normal external inspection, Tongue normal Teeth exam: Normal inspection. negative: Dental caries Throat exam: Normal inspection. negative: Tonsillar erythema, Tonsillar exudate - Neck Neck exam: Normal inspection, Full ROM. negative: Tenderness - Respiratory Respiratory exam: Rhonchi (LLL), Other (crackles bilat bases). negative: Respiratory distress - Cardiovascular Cardiovascular Exam: Normal heart sounds, Irregular rhythm, Systolic murmur, Tachycardia Peripheral Pulses: 2+: Radial (R), Radial (L), Dorsalis Pedis (R), Dorsalis Pedis (L) - GI/Abdominal GI/Abdominal exam: Soft, Normal bowel sounds, Hyperactive bowel sounds. negative: Tenderness - Rectal Rectal exam: Deferred - exam: Deferred - Extremities Extremities exam: Normal inspection, Full ROM, Normal capillary refill, Pedal edema (2+ pitting edema BLE knee to feet). negative: Tenderness - Back Back exam: Reports: Normal inspection, Full ROM. Denies: Muscle spasm, Rash noted, Tenderness - Neurological Neurological exam: Alert, CN II-XII intact, Normal gait, Reflexes normal - Psychiatric Psychiatric exam: Normal affect, Normal mood - Skin Skin exam: Dry, Intact, Normal color, Warm Assessment and Plan - Assessment and Plan (1) Chronic atrial fibrillation with rapid ventricular response Current Visit: Yes Status: Acute Base Code: I48.20 - CHRONIC ATRIAL FIBRILLATION, UNSPECIFIED Comment: 02/09/19 - EKG in ED a-fib with RVR, Cardizem 5mg x 1 given with improved rate - Telemetry a-fib, rate 100-109, Echo 02/07/19- EF 30-35% moderate biatrial enlargement, mild mitral regurgitation, mild tricuspid regurgitation, mornal pulmonary pressures. Per previous report from [facility] cardiology last EF 55-60% July 2018. This apprears to be a new cardiomyopathy. Case discussed with Dr Azar MCLAUGHLIN last night, patient does have hx of cardiomyopathy with recurrent a-fib, was cardioverted last year and had EF 55-60% after that - CHADVASC 4.8% 1/yr stroke risk, is not anticoagulant candidate due to hx GI bleed and falls - Most recent cardiology progress report reviewed from January 2019- medications reconcilled per most up to date list - Metprolol initated at 50mg BID and increased to 100mg BID beginning yesterday afternoon, pulse has been irregular and 88-92 on average - Follow up with cardiology after discharge to follow up on A-fib with RVR (2) CHF (congestive heart failure) Current Visit: Yes Status: Acute Base Code: I50.9 - HEART FAILURE, UNSPECIFIED Comment: 02/09/19 - ProBNP in ED 3181, Troponin <0.010 - Fluid restriction, cardiac diet - Lasix 20mg decreased to QD, significant improvement in BLE edema - Daily weights, there has been continued weight loss BP stable. Anticipate short course of Lasix at time of discharge and follow up with [facility] for further management. Renal function stable (3) Acute alteration in mental status Current Visit: Yes Status: Acute Base Code: R41.82 - ALTERED MENTAL STATUS, UNSPECIFIED Comment: 02/09/19 - Head CT negative in ED - Acute change in normal baseline cognition (drives, works, independent) - U/A unremarkable in ED, sent for culture - BC x 2, preliminary no growth - Tmax 100.1 - Azithromycin changed to Doxycycine for cardiac protection, Rocephin 1gm QD - Cognition returned to baseline today, A&O x3 (4) HTN (hypertension) Current Visit: Yes Status: Acute Base Code: I10 - ESSENTIAL (PRIMARY) HYPERTENSION Comment: 02/09/19 - Lisinopril 5mg daily, Metoprolol 50mg BID (5) Frequent falls Current Visit: Yes Status: Acute Base Code: R29.6 - REPEATED FALLS Comment: 02/09/19 - PT/OT eval - Likely due to acute illness, no fall during hospitalization - Feels back to baseline strength and mobility (6) Urinary retention Current Visit: Yes Status: Acute Base Code: R33.9 - RETENTION OF URINE, UNSPECIFIED Comment: 02/09/19 - Past hx of urinary retention requiring alexander placement, hx BPH, no urologist - PVR in ED>600, refused alexander in ED - PVRs have been 50-60 consistently. Rationale explained to patient and who understand the need for alexander catheter and is in agreement for it - Follow up with urology as outpatient - Flomax 0.4mg QD (Proscar was listed on home medication list but had not taken in some time) (7) Weakness Current Visit: Yes Status: Acute Base Code: R53.1 - WEAKNESS Comment: 02/09/19 - PT/OT (8) LLL pneumonia Current Visit: Yes Status: Acute Base Code: J18.1 - LOBAR PNEUMONIA, U NSPECIFIED ORGANISM Comment: 02/09/19 - Doxycycline 100mg BID (changed from Azithromycin for cardiac protection), Rocephin 1gm Q - Platelets 98-->115-->103-->98 in the presense of anemia, most likely due to acute illess. Recheck 1 week after discharge (9) Full code status Current Visit: Yes Status: Acute Base Code: Z78.9 - OTHER SPECIFIED HEALTH STATUS Comment: 02/09/19 (10) DVT prophylaxis Current Visit: Yes Status: Acute Base Code: Z29.9 - ENCOUNTER FOR PROPHYLACTIC MEASURES, UNSPECIFIED Comment: 11/8/19 - Not candidate for anticoagulation due to GI bleed and falling - SCD in bed - Nursing to encourage frequent ambulation Results - Labs Result Diagrams: 02/08/19 06:40 02/08/19 10:27 DVT/PE Assessment - Risk for VTE Risk for VTE: No Risk Level: Moderate Risk Assessment Date: 02/07/19 Risk Assessment Time: 15:26 VTE Orders Placed or Will Be Placed: Yes - Active Medicaitons Current Medications: Current Medications Acetaminophen (Tylenol 500mg Tab) 1,000 mg PO Q6H PRN PRN Reason: PAIN - MILD(1-4)/FEVER Last Admin: 02/09/19 07:49 Dose: 1,000 mg Documented by: Benzonatate (Tessalon) 100 mg PO TID PRN PRN Reason: COUGH Last Admin: 02/08/19 09:48 Dose: 100 mg Documented by: Cyanocobalamin (Vitamin B-12) 100 mcg PO DAILY [facility] Last Admin: 02/09/19 10:17 Dose: 100 mcg Documented by: Doxycycline Hyclate (Vibramycin) 100 mg PO BID [facility] Last Admin: 02/09/19 10:30 Dose: 100 mg Documented by: Furosemide (Lasix Iv) 20 mg IVP DAILY [facility] Last Admin: 02/09/19 10:29 Dose: 20 mg Documented by: CEFTRIAXONE 1GM/50ML BAG (Ceftriaxone 1 Gm-D5w Bag) 1 gm in 50 mls @ 100 mls/hr IVPB Q24H [facility] Last Infusion: 02/08/19 17:12 Dose: Infused Documented by: Metoprolol Tartrate (Lopressor) 100 mg PO BID [facility] Last Admin: 02/09/19 10:15 Dose: 100 mg Documented by: Potassium Chloride (Klor-Con) 20 meq PO DAILY [facility] Last Admin: 02/09/19 10:14 Dose: 20 meq Documented by: Tamsulosin HCl (Flomax) 0.4 mg PO DAILY [facility] Last Admin: 02/09/19 10:14 Dose: 0.4 mg Documented by: AMI Plan - Labs Result Diagrams: 02/08/19 06:40 02/08/19 10:27
[2019-02-09] MEDS: CEFTRIAXONE 1GM/50ML BAG 1 GM/50 ML BAG IVPB SCH (15:46)
[2019-02-10] MEDS ORDERED: ZINC OXIDE 28.35 GM TUBE TOP PRN (01:48)
[2019-02-10 06:36] LABS: ABSOLUTE NEUTROPHIL COUNT 3.69; EOS % 1.1 % (0-6); GRAN % 69.8 % (47-80); HEMATOCRIT 36.3 % (42.0-52.0); HEMOGLOBIN 11.2 gm/dl (14.0-18.0); LYMPH % 23.4 % (16-45); MEAN CELL VOLUME 102.8 fl (81-97); MEAN CORPUSCULAR HEMOGLOBIN 31.7 pg (27-33); MEAN CORPUSCULAR HGB CONC 30.9 g/dl (32-36); MEAN PLATELET VOLUME 11.3 fl (7.4-10.4); MONO % 5.7 % (0-9); PLATELET COUNT 146 K/uL (130-400); RED BLOOD COUNT 3.53 M/uL (4.40-5.70); RED CELL DISTRIBUTION WIDTH 12.9 % (11.5-14.5); WHITE BLOOD COUNT W/O DIFF 5.3 K/uL (4.2-12.2)
[2019-02-10 06:53] LABS: ALBUMIN 2.7 g/dL (4.0-5.0); ALKALINE PHOSPHATASE 51 U/L (40-129); ALT/SGPT 15 U/L (<41); AST/SGOT 16 U/L (10.0-50.0); BLOOD UREA NITROGEN 23 mg/dL (8-23); CREATININE 0.8 mg/dL (0.7-1.2); EST GLOMERULAR FILTRATION RATE > 60 mL/min; GLUCOSE,RANDOM 97 mg/dL (74-109); TOTAL PROTEIN 5.3 g/dL (6.6-8.7)
--- NOTE | 2019-02-10 09:03 | Discharge Summary ---
Providers Discharge Summary Date: 02/10/19 Date of admission: 02/06/19 18:21 Attending physician: MELODY FITZPATRICK Primary care physician: Fabián Palomo D.O. Physical Exam - Vital Signs Vital Signs: Vital Signs - Last 24 Hrs Temp Pulse Pulse Pulse Resp BP BP 02/10/19 02:14 97.5 F L 96 H 16 02/09/19 21:00 108 H 16 02/09/19 20:00 97.7 F 108 H 16 02/09/19 16:40 98.1 F 86 16 117/75 02/09/19 12:37 02/09/19 11:59 94.9 F L 80 14 02/09/19 11:32 98.1 F 117/64 02/09/19 09:00 82 80 14 BP Pulse Ox 02/10/19 02:14 105/69 97 02/09/19 21:00 02/09/19 20:00 110/69 94 L 02/09/19 16:40 98 02/09/19 12:37 93 L 02/09/19 11:59 110/68 02/09/19 11:32 02/09/19 09:00 - General General Appearance: Alert, Oriented x3, Cooperative, No acute distress Limitations: No limitations - Head Head exam: Normal inspection - Eye Eye exam: Normal appearance, PERRL, EOMI Pupils: Normal accommodation - ENT ENT exam: Normal exam, Mucous membranes moist, Normal external ear exam, Normal orophraynx Ear exam: Normal external inspection. negative: External canal tenderness Nasal Exam: Normal inspection. negative: Discharge, Sinus tenderness Mouth exam: Normal external inspection, Tongue normal Teeth exam: Normal inspection. negative: Dental caries Throat exam: Normal inspection. negative: Tonsillar erythema, Tonsillar exudate - Neck Neck exam: Normal inspection, Full ROM. negative: Tenderness - Respiratory Respiratory exam: Normal lung sounds bilaterally. negative: Respiratory distress - Cardiovascular Cardiovascular Exam: Normal heart sounds, Irregular rhythm, Systolic murmur Peripheral Pulses: 2+: Radial (R), Radial (L), Dorsalis Pedis (R), Dorsalis Pedis (L) - GI/Abdominal GI/Abdominal exam: Soft, Normal bowel sounds, Hyperactive bowel sounds. negative: Tenderness - Rectal Rectal exam: Deferred - exam: Deferred - Extremities Extremities exam: Normal inspection, Full ROM, Normal capillary refill, Pedal edema (1-2 2+ pitting edema BLE knee to mid tibia). negative: Tenderness - Back Back exam: Reports: Normal inspection, Full ROM. Denies: Muscle spasm, Rash noted, Tenderness - Neurological Neurological exam: Alert, CN II-XII intact, Normal gait, Reflexes normal - Psychiatric Psychiatric exam: Normal affect, Normal mood - Skin Skin exam: Dry, Intact, Normal color, Warm Hospitalization - Hospitalization Admission Diagnosis: weakness, chronic afib, urinary retention, frequent falls - Problem List/Discharge Diagnosis (1) Chronic atrial fibrillation with rapid ventricular response Current Visit: Yes Status: Acute Base Code: I48.20 - CHRONIC ATRIAL FIBRILLATION, UNSPECIFIED Comment: 02/09/19 - EKG in ED a-fib with RVR, Cardizem 5mg x 1 given with improved rate - Telemetry a-fib, rate 100-109, Echo 02/07/19- EF 30-35% moderate biatrial enlargement, mild mitral regurgitation, mild tricuspid regurgitation, normal pulmonary pressures. Per previous report from [facility] cardiology last EF 55-60% July 2018. This apprears to be a new cardiomyopathy. Case discussed with Dr Azar MCLAUGHLIN last night, patient does have hx of cardiomyopathy with recurrent a-fib, was cardioverted last year and had EF 55-60% after that - CHADVASC 4.8% 1/yr stroke risk, is not anticoagulant candidate due to hx GI bleed and falls - Most recent cardiology progress report reviewed from January 2019- medications reconcilled per most up to date list - Metprolol initated at 50mg BID and increased to 100mg BID beginning yesterday afternoon, pulse has been irregular and 88-92 on average - Follow up with cardiology after discharge to follow up on A-fib with RVR (2) CHF (congestive heart failure) Current Visit: Yes Status: Acute Base Code: I50.9 - HEART FAILURE, UNSPECIFIED Comment: 02/09/19 - ProBNP in ED 3181, Troponin <0.010 - Fluid restriction, cardiac diet - Lasix 20mg decreased to QD, significant improvement in BLE edema - Daily weights, there has been continued weight loss BP stable. Anticipate short course of Lasix at time of discharge and follow up with [facility] for further management. Renal function stable (3) Acute alteration in mental status Current Visit: Yes Status: Acute Base Code: R41.82 - ALTERED MENTAL STATUS, UNSPECIFIED Comment: 02/09/19 - Head CT negative in ED - Acute change in normal baseline cognition (drives, works, independent) - U/A unremarkable in ED, sent for culture - BC x 2, preliminary no growth - Tmax 100.1 - Azithromycin changed to Doxycycine for cardiac protection, Rocephin 1gm QD - Cognition returned to baseline today, A&O x3 (4) HTN (hypertension) Current Visit: Yes Status: Acute Base Code: I10 - ESSENTIAL (PRIMARY) HYPERTENSION Comment: 02/09/19 - Lisinopril 5mg daily, Metoprolol 50mg BID (5) Frequent falls Current Visit: Yes Status: Acute Base Code: R29.6 - REPEATED FALLS Comment: 02/09/19 - PT/OT eval - Likely due to acute illness, no fall during hospitalization - Feels back to baseline strength and mobility (6) Urinary retention Current Visit: Yes Status: Acute Base Code: R33.9 - RETENTION OF URINE, UNSPECIFIED Comment: 02/09/19 - Past hx of urinary retention requiring alexander placement, hx BPH, no urologist - PVR in ED>600, refused alexander in ED - PVRs have been 50-60 consistently. Rationale explained to patient and who understand the need for alexander catheter and is in agreement for it - Follow up with urology as outpatient - Flomax 0.4mg QD (Proscar was listed on home medication list but had not taken in some time) (7) Weakness Current Visit: Yes Status: Acute Base Code: R53.1 - WEAKNESS Comment: 02/09/19 - PT/OT (8) LLL pneumonia Current Visit: Yes Status: Acute Base Code: J18.1 - LOBAR PNEUMONIA, UNSPECIFIED ORGANISM Comment: 02/09/19 - Doxycycline 100mg BID (changed from Azithromycin for cardiac protection), Rocephin 1gm Q - Platelets 98-->115-->103-->98 in the presense of anemia, most likely due to acute illess. Recheck 1 week after discharge (9) Full code status Current Visit: Yes Status: Acute Base Code: Z78.9 - OTHER SPECIFIED HEALTH STATUS Comment: 02/09/19 (10) DVT prophylaxis Current Visit: Yes Status: Acute Base Code: Z29.9 - ENCOUNTER FOR PROPHYLACTIC MEASURES, UNSPECIFIED Comment: 02/09/19 - Not candidate for anticoagulation due to GI bleed and falling - SCD in bed - Nursing to encourage frequent ambulation - Hospitalization Course Disposition: Home Health Service Hospital Course: 88 y/o male presented to ED for 2 day hx of falls, increased weakness, fatigue, sleeping more, poor appetite, cough, increased confusion, BLE edema. at the bedside and provided the majority of information due to [place] and confusion. 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 does report he had had problems with urinary retention, most recently about 10 years ago had to have alexander catheter placement as managed by PCP for BPH. Recently saw Hebrew Professor last week with no new concerns. Has never been told he has heart failure. Currently is not using a catheter and according to has not had any complaints of urinary issues. Past medical hx includes former smoker, HTN, Afib with cardioversion January 2018, BPH, urinary retention. While in ED VSS, afebrile. BP 136/103. WBC 8.7, platelet 103, neutrophils 85. Na 139. BUN 25. Troponin x2 <0.010. BNP 3181. U/A unremarkable. EKG- a-fib with RVR. Cardizem 5mg IV given in ED with improvement in rate. Urinary frequency and little urine output-PVR>600. Patient adamantly refused alexander placement at that time. Admitted for weakness, frequent falling, urinary retention, a-fib with RVR. 02/07/19 1130- Resting in bed comfortably, in no obvious distress. at bedside and provided most of the history. 02/10/19 Hospital course uneventful and responded well to all treatment. EKG in ED a-fib with RVR, Cardizem 5mg x 1 given with improved rate, Telemetry a-fib, rate 100-109, Echo 02/07/19- EF 30-35% moderate biatrial enlargement, mild mitral regurgitation, mild tricuspid regurgitation, normal pulmonary pressures. Per p revious report from [facility] last EF 55-60% July 2018. This apprears to be a new cardiomyopathy. Case discussed with Dr Azar MCLAUGHLIN at the time of echocardiogram and confirmed patient does have hx of cardiomyopathy with recurrent a-fib, was cardioverted last year and had EF 55-60% after that. CHADVASC 4.8% 1/yr stroke risk, is not anticoagulant candidate due to hx GI bleed and falls. Most recent cardiology progress report reviewed from January 2019- medications reconcilled per most up to date list Metprolol initated at 50mg BID and increased to 100mg BID with good rate response. At time of discharge rate was 78-90, remained irregular with occasional PVC. Acute CHF treated with Lasix IV and responded well. Pneumonia treated with Rocephin and Azithromycin and then changed to Doxycycline and continued at discharge. Lasix PO to be continued at discharge as well as Metoprolol 100mg BID until follow up with [facility]. He readily returned to his baseline cognition of A&Ox3, was ambulation with assist with physical therapy and was found to be stable for discharge home today. PCP: Dr Palomo Cardiology: Dr MARI Procedures: Imaging and X-Rays 02/06/19 12:59 HEAD WO CONTRAST [CT] Stat 02/06/19 13:00 LUMBAR SPINE / AP LAT [RAD] Stat 02/07/19 10:09 CXR [CHEST 2 VIEWS] [RAD] Stat Cardiology Procedures 02/06/19 12:55 EKG NOW 02/06/19 13:00 Venue Manager NOW 02/06/19 19:08 Echo W/CF & Cardiac Doppler NOW 02/08/19 10:17 EKG NOW Abnormal Labs: Abnormal Lab Results 02/06/19 02/06/19 02/06/19 Range/Units 12:53 12:53 12:53 RBC 3.58 L (4.40-5.70) M/uL Hgb 11.7 L (14.0-18.0) gm/dl Hct 37.4 L (42.0-52.0) % MCV 104.5 H (81-97) fl MCHC 31.3 L (32-36) g/dl Plt Count 115 L (130-400) K/uL MPV 11.6 H (7.4-10.4) fl Neutrophils % 85.0 H (47-80) % Lymphocytes 12.0 L (16-45) % Sodium (136-145) mmol/L Potassium (3.4-4.5) mmol/L Chloride (98-107) mmol/L Carbon Dioxide (22-29) mmol/L BUN 25 H (8-23) mg/dL Random Glucose 204 H (74-109) mg/dL Calcium (8.8-10.2) mg/dL NT-Pro-B Natriuret Pep 3181.00 H (<450) pg/mL Total Protein 6.0 L (6.6-8.7) g/dL Albumin 3.3 L (4.0-5.0) g/dL Albumin/Globulin Ratio (1.1-1.8) Urine Protein (NEGATIVE) Urine Urobilinogen (0.20 - 1.00) E.U./dL 02/06/19 02/07/19 02/07/19 Range/Units 14:11 06:08 06:08 RBC 3.34 L (4.40-5.70) M/uL Hgb 10.7 L (14.0-18.0) gm/dl Hct 34.7 L (42.0-52.0) % MCV 103.9 H (81-97) fl MCHC 30.8 L (32-36) g/dl Plt Count 103 L (130-400) K/uL MPV 11.3 H (7.4-10.4) fl Neutrophils % 85.0 H (47-80) % Lymphocytes 12.0 L (16-45) % Sodium (136-145) mmol/L Potassium 3.2 L (3.4-4.5) mmol/L Chloride (98-107) mmol/L Carbon Dioxide (22-29) mmol/L BUN 29 H (8-23) mg/dL Random Glucose 127 H (74-109) mg/dL Calcium 8.6 L (8.8-10.2) mg/dL NT-Pro-B Natriuret Pep (<450) pg/mL Total Protein 5.5 L (6.6-8.7) g/dL Albumin 3.0 L (4.0-5.0) g/dL Albumin/Globulin Ratio (1.1-1.8) Urine Protein 30 mg/dl H (NEGATIVE) Urine Urobilinogen 4.0 H (0.20 - 1.00) E.U./dL 02/08/19 02/08/19 02/08/19 Range/Units 06:40 06:40 10:27 RBC 3.38 L (4.40-5.70) M/uL Hgb 10.9 L (14.0-18.0) gm/dl Hct 34.6 L (42.0-52.0) % MCV 102.4 H (81-97) fl MCHC 31.5 L (32-36) g/dl Plt Count 98 L (130-400) K/uL MPV 11.2 H (7.4-10.4) fl Neutrophils % (47-80) % Lymphocytes 14.0 L (16-45) % Sodium 135 L (136-145) mmol/L Potassium (3.4-4.5) mmol/L Chloride 95 L (98-107) mmol/L Carbon Dioxide (22-29) mmol/L BUN 29 H 27 H (8-23) mg/dL Random Glucose 133 H (74-109) mg/dL Calcium 8.5 L 8.6 L (8.8-10.2) mg/dL NT-Pro-B Natriuret Pep (<450) pg/mL Total Protein 5.4 L 5.7 L (6.6-8.7) g/dL Albumin 2.6 L 3.0 L (4.0-5.0) g/dL Albumin/Globulin Ratio 0.9 L (1.1-1.8) Urine Protein (NEGATIVE) Urine Urobilinogen (0.20 - 1.00) E.U./dL 02/10/19 02/10/19 Range/Units 06:00 06:00 RBC 3.53 L (4.40-5.70) M/uL Hgb 11.2 L (14.0-18.0) gm/dl Hct 36.3 L (42.0-52.0) % MCV 102.8 H (81-97) fl MCHC 30.9 L (32-36) g/dl Plt Count (130-400) K/uL MPV 11.3 H (7.4-10.4) fl Neutrophils % (47-80) % Lymphocytes (16-45) % Sodium (136-145) mmol/L Potassium (3.4-4.5) mmol/L Chloride (98-107) mmol/L Carbon Dioxide 32.0 H (22-29) mmol/L BUN (8-23) mg/dL Random Glucose (74-109) mg/dL Calcium 8.7 L (8.8-10.2) mg/dL NT-Pro-B Natriuret Pep (<450) pg/mL Total Protein 5.3 L (6.6-8.7) g/dL Albumin 2.7 L (4.0-5.0) g/dL Albumin/Globulin Ratio 1.0 L (1.1-1.8) Urine Protein (NEGATIVE) Urine Urobilinogen (0.20 - 1.00) E.U./dL Condition at Discharge: (2) Stable Discharge Medications - Discharge Medications Prescriptions: Tamsulosin HCl [Flomax] 0.4 mg PO DAILY #30 cap.er.24h Potassium Chloride [Klor-Con] 20 meq PO DAILY #30 tablet.sa Furosemide [Lasix] 20 mg PO DAILY #30 tablet Metoprolol Tartrate [Lopressor] 100 mg PO BID #60 tablet Benzonatate [Tessalon Perles] 100 mg PO TID PRN #30 capsule PRN Reason: Cough Doxycycline Hyclate [Vibramycin] 100 mg PO BID 8 Days #16 capsule Cyanocobalamin (Vitamin B-12) [Vitamin B-12] 100 mcg PO DAILY #30 tablet Home Medications: Ambulatory Orders Carvedilol 6.25 mg PO BID 02/15/16 [Last Taken 1 Day Ago ~12/05/16] Lisinopril 5 mg PO DAILY 02/15/16 [Last Taken 1 Day Ago ~12/05/16] Simvastatin 40 mg PO DAILY 02/15/16 [Last Taken 1 Day Ago ~12/05/16] Aspirin [Aspirin EC] 81 mg PO DAILY 12/06/16 [Last Taken 1 Day Ago ~12/05/16] Acetaminop W/ Codeine 300/30Mg [Tylenol with Codeine #3] 1 tab PO Q6H 02/06/19 [Last Taken Unknown] Clobetasol Propionate/Emoll [Clobetasol Emollient 0.05% Crm] 1 apply TP DAILY 02/06/19 [Last Taken Unknown] Clotrimazole/Betamethasone Dip [Lotrisone Cream] 1 apply TP DAILY 02/06/19 [Last Taken Unknown] Finasteride [Proscar] 5 mg PO DAILY 02/06/19 [Last Taken Unknown] Benzonatate [Tessalon Perles] 100 mg PO TID PRN #30 capsule 02/10/19 [Last Taken Unknown] Cyanocobalamin (Vitamin B-12) [Vitamin B-12] 100 mcg PO DAILY #30 tablet 02/10/19 [Last Taken Unknown] Doxycycline Hyclate [Vibramycin] 100 mg PO BID 8 Days #16 capsule 02/10/19 [Last Taken Unknown] Furosemide [Lasix] 20 mg PO DAILY #30 tablet 02/10/19 [Last Taken Unknown] Metoprolol Tartrate [Lopressor] 100 mg PO BID #60 tablet 02/10/19 [Last Taken Unknown] Potassium Chloride [Klor-Con] 20 meq PO DAILY #30 tablet.sa 02/10/19 [Last Taken Unknown] Tamsulosin HCl [Flomax] 0.4 mg PO DAILY #30 cap.er.24h 02/10/19 [Last Taken Unknown] Discharge Plan - Discharge Instructions Activity at Discharge: Increase Activity as Tolerated Diet at Discharge: Advance to Usual Diet Instructions: Heart Failure (DC), Urinary Incontinence (GEN), Weakness (DC), Low-Sodium Diet (DC), Pneumonia (DC) Additional Instructions: Activity: Increase Activity as Tolerated Diet: Advance to Usual Diet Consults: [Follow up with [facility] in 1 week due to new medication changes] Follow Up: [Appointment with Dr. Palomo on 02/14 at 10:30] Dressing/Wound Care: (Type) (Change) Additional: [] First outpatient therapy appointment at [facility] February 15 at 9:00am. Please arrive at 8:45am. Quality Measures - Quality Measures Quality Measures: Atrial Fibrillation & Atrial Flutter: Chronic Anticoagulation Therapy, Advance Directives, Documentation of Current Medications in Medical Record, Elder Maltreatment Screen and Follow-Up Plan, Heart Failure, Screening for High Blood Pressure and F/U Documented - Current Medications Quality Measure: Measure #130: Documentation of Current Medications Documentation of Current Medications: <Current Medications Documented/Reviewed> [G8427] - Blood Pressure Screening Quality Measure: Screening for High Blood Pressure and Follow-Up Documented Does Patient Have Any of the Following: Active Dx of HTN Blood Pressure Classification: Normal BP Reading Systolic Measurement: 117 Diastolic Measurement: 64 Screening for High Blood Pressure: Patient Exclusion, Hx of HTN [G9744] - Atrial Fibrillation and Atrial Flutter Quality Measure: Atrial Fibrillation & Atrial Flutter: Chronic Anticoagulation Therapy Does Patient Have Any of the Following: No CHADS2 Risk Stratification: Age 75 or Greater, Hypertension, Heart Failure or Impaired LVSF Risk Stratification Summary: One or more high risk factors OR more than one moderate risk factor exists. [G8972] Anticoagulation Therapy: Patient Exclusion [G9746] Medical Reason for NOT Prescribing Anticoagulant: Risk of Bleeding - Heart Failure (REINA/ARB Therapy) Quality Measure: Heart Failure Left Ventricular Systolic Function: LV Ejection Fraction less than 40% [3021F] REINA Inhibitor or ARB Therapy for LVSD: <REINA Inhibitor or ARB therapy prescribed or currently taken> [4010F] - Heart Failure (Beta-isacc Therapy) Quality Measure: Heart Failure Left Ventricular Systolic Function: LV Ejection Fraction less than 40% [3021F] Beta-Isacc Therapy for LVEF < 40%: <Beta-Isacc Therapy Prescribed> [G1650] - Advance Directives Quality Measure: Measure #47: Care Plan Advance Directives Established: No Advance Directives Information Provided To Patient: No Advance Directives on File: No Living Will: No Power of Wireless Sales Consultant: No Advance Care Planning: <Care Plan/Decision Maker Documented; Discussed & Documented> [1123F] - Elder Abuse Suspicion Index Screening: Elder Abuse Suspicion Index Screening Rely on people for bathing, dressing, shopping, banking, etc: Yes Prevented from getting food, clothes, medication, etc: No Made to feel shamed or threatened by someone: No Forced to sign papers or use money against will: No Feel afraid, touched in ways not wanted or hurt physically: No Poor eye contact, withdrawn, malnourished, cuts or bruises: No Screening Result: Negative result EASI Reference Information: Nixon NANCE, Jessie C, Kwadwo D, Lupe Hernandez.Development and validation of a tool to assist physicians identification of elder abuse: The Elder Abuse Suspicion Index (EASI ). Journal of Elder Abuse and Neglect, 2008; 20 (3): 276-300. - Elder Maltreatment Screen Quality Measures: Elder Maltreatment Screen and Follow-Up Plan Elder Maltreatment Screen: <Negative, No Follow-Up Plan Required> [G8724]
[2019-02-10] MEDS: POTASSIUM CHLORIDE 20 MEQ TABLET PO SCH (11:04)
[2019-02-10] MEDS: METOPROLOL TART 50 MG TABLET PO SCH (11:04)
[2019-02-10] MEDS: DOXYCYCLINE HYCLATE 100 MG CAPSULE PO SCH (11:04)
[2019-02-10] MEDS: FUROSEMIDE IV 20MG/2ML VIAL IVP SCH (11:04)
[2019-02-10] MEDS: TAMSULOSIN HCL 0.4 MG CAP.ER.24H PO SCH (11:05)
[2019-02-10] MEDS: CYANOCOBALAMIN (VITAMIN B-12) 100 MCG TABLET PO SCH (11:05)
== END 2019-02-10 12:45 | disposition home health service (06) | DRG 947 ==
LOC: ER 12:18 → MEDSURG 18:21
PROVIDERS: ADMIT Internal Medicine; ATTEND Internal Medicine
DX: R53.1 Weakness (principal); J18.1 Lobar pneumonia, unspecified organism; I48.20 Chronic atrial fibrillation, unspecified; I50.9 Heart failure, unspecified; R33.9 Retention of urine, unspecified; R41.82 Altered mental status, unspecified; R60.9 Edema, unspecified; I10 Essential (primary) hypertension; R29.6 Repeated falls; N40.0 Benign prostatic hyperplasia without lower urinary tract symptoms
CPT/HCPCS: 70450; 71046; 72100; 80053; 81001; 83880; 84145; 84484; 85025; 85027; 87040; 93005; 93010; 93306; 96374; 96375; 99223; 99233; 99239; 99285; J0456; J0696; J1940; J7050